=== PATIENT | male | born 1950 | race Caucasian/White ===

== ENCOUNTER 2018-12-06 11:08 | Emergency (ER) | payer OTHER, MEDICARE ==
[~2018-12-06] VITALS: Ht 175.2 cm; Wt 64.4 kg
[2018-12-06] MEDS ORDERED: LIPITOR40 MG PO (11:38)
[2018-12-06] MEDS ORDERED: VIAGRA100 MG PO (11:40)
[2018-12-06] MEDS ORDERED: ASPIRIN CHEWABL81 MG PO (11:41)
[2018-12-06] MEDS ORDERED: VITAMIN B-12100 MCG PO (11:42)
[2018-12-06] MEDS ORDERED: VITAMIN D32000 UNI1 PO (11:43)
[2018-12-06 12:24] LABS: HEMATOCRIT 39.3 % (42.0-52.0); MEAN CELL VOLUME 108.6 fl (80.0-94.0); MEAN CORPUSCULAR HGB 35.9 pg (27.0-31.0); MEAN CORPUSCULAR HGB CONC 33.1 g/dl (33.0-37.0); MEAN PLATELET VOLUME 8.1 fl (9.6-12.3); PLATELET COUNT AUTOMATED 354 10*3/uL (130-400); RED BLOOD COUNT 3.62 10*6/uL (4.50-5.90); RED CELL DISTRI WIDTH 13.6 % (0-14.5); WHITE BLOOD COUNT 8.9 10*3/uL (4.8-10.8)
[2018-12-06 12:33] LABS: ACT PARTIAL THROMBO TIME 24.1 SECONDS (20.8-31.5); INTERNATIONAL NORM RATIO 0.9 (2.0-3.5)
[2018-12-06 12:43] LABS: BASOPHILS 1 % (0-1); TOTAL CELLS COUNTED 100 #CELLS
[2018-12-06 12:44] LABS: PLATELET SUFFICIENCY NORMAL (NORMAL)
[2018-12-06 12:51] LABS: ALBUMIN 3.3 gm/dl (3.1-4.5); ALKALINE PHOSPHATASE 80 U/L (45-117); BUN 15 mg/dl (7-24); CHLORIDE 106 mmol/L (98-107); CREATININE 0.66 mg/dL (0.70-1.30); POTASSIUM 4.5 mmol/L (3.5-5.1); SGOT/AST 26 IU/L (3-35); SGPT/ALT 26 U/L (12-78); SODIUM 139 mmol/L (136-145); TOTAL PROTEIN 7.3 gm/dL (6.4-8.2)
== END 2018-12-06 14:40 | disposition short-term general hospital (02) ==
LOC: ED 11:08
PROVIDERS: Nurse Practitioner Family
DX: L03.113 Cellulitis of right upper limb (principal); F17.200 Nicotine dependence, unspecified, uncomplicated; Z79.899 Other long term (current) drug therapy; Z79.82 Long term (current) use of aspirin